=== PATIENT | female | born 1970 | race Caucasian/White ===

== ENCOUNTER 2016-10-27 07:42 | Outpatient (CLI) ==
[2014-09-20 18:00] VITALS: BMI 32.9
--- NOTE | 2016-10-27 09:43 | MRI ---
EXAM: MRI right shoulder without contrast. HISTORY: Right shoulder pain. No right shoulder surgery reported.. TECHNIQUE: Using a local coil on a high field strength magnet multiplanar multisequence MRI was per formed of the right shoulder without intravenous or intra-articular gadolinium contrast.. COMPARISON: Three-view plain film examination right shoulder 08/03/2016.. FINDINGS: A Type IV acromion. Coracoacromial ligament/arch intact without definitive thickening. Right acromioclavicular joint within normal limit in appearance. Deltoid musculature of normal sign al intensity. Trace free fluid subacromial/subdeltoid bursa. Muscle bulk of the rotator cuff shows some fatty infiltration without definitive atrophy or acute mu scle strain. Supraspinatus tendinosis over the insertion and critical zone. Approximate 20 mm AP b y 17 mm in length area of partial thickness articular sided tearing to the supraspinatus insertion a nd critical zone involving approximate 50% thickness of the cuff. Posterior intact infraspinatus an d teres minor tendon fibers. Anterior intact subscapularis tendon fibers. The long head of the bic eps tendon shows intact fibers located in expected position within the bicipital groove and within n ormal limits signal intensity and morphology. Right humeral head of normal morphology and seated. No right glenohumeral joint centered subchondra l bone marrow edema or bone erosions. Trace right glenohumeral joint effusion. Right glenoid labru m along the posterior-superior aspect shows some slit-like increased T2 signal intensity. IMPRESSION: Supraspinatus tendinosis. Approximate 20 x 17 mm partial thickness articular sided tea r involving approximate 50% thickness of the cuff. No full-thickness rotator cuff tear identified. Trace free fluid subacromial/subdeltoid bursa may reflect an overlying degree bursitis and/or be se quelae of prior shoulder injection. Correlate clinically. Trace right glenohumeral joint effusion. Slit-like increased T2 signal intensity along the posterior-superior right glenoid labrum on this no n-arthrographic examination. If clinical concern for a right glenoid labral tear dedicated MR arth rography may be helpful for further characterization.
== END 2016-10-27 07:43 | disposition home or self-care (01) ==
LOC: RAD 07:42
PROVIDERS: ATTEND Nurse Practitioner Family
DX: M25.511 Pain in right shoulder (principal)

== ENCOUNTER 2018-02-10 21:24 | Emergency (ER) ==
[2018-02-10 21:24] VITALS: BMI 32.9
[2018-02-10 21:40] VITALS: BP 125/75; TEMP 98
[2018-02-10] MEDS ORDERED: TORADOL IVP STA (22:16)
[2018-02-10] MEDS ORDERED: ZOFRAN 4 MG/2 ML IVP STA (22:17)
[2018-02-10] MEDS ORDERED: NORFLEX IVP STA (22:18)
[2018-02-10] MEDS ORDERED: SODIUM CHLORIDE 1,000 ML IV STA (22:18)
--- NOTE | 2018-02-10 22:19 | ED.PDOC ---
General ED Provider: Dr. ALEISHA ROBERTS Chief Complaint: Headache Stated Complaint: Onset earlier this evening. Worked today then went to establishment to watch the [place]. Developed Nausea, vomiting and Diarrhea. Headache Midparietal region midline. Pressure with sharp stabbing sensation Time Seen by Physician: 22:15 Mode of Arrival: Walk-In Information Source: Patient Exam Limitations: No limitations Primary Care Provider: CHANTEL HUNTER Nursing and Triage Documentation Reviewed and Agree: Yes Reviewed sepsis parameters & appropriate labs ordered?: Yes System Inflammatory Response Syndrome: Not Applicable Sepsis Protocol: For patient's 13 years and over: Temp is 96.8 and below OR 101 and greater Pulse >90 BPM Resp >20/minute Acutely Altered Mental Status Are patient's symptoms suggestive of a new infection, such as: -Pneumonia -Skin, Soft Tissue -Endocarditis -UTI -Bone, Joint Infection -Implantable Device -Acute Abdominal Infection -Wound Infection -Meningitis -Blood Stream Catheter Infection -Unknown System Inflammatory Response Syndrome: Not Applicable Neurological Complaint Exam - Headache Complaint/Exam Duration: 90 Symptoms Are: Still present Timing: Constant Episodes Lasting: Minutes Worst Headache Ever: Yes Initial Severity: Severe Current Severity: Moderate Location: Parietal Character: Reports: Sharp, Pressure, Migraine Aggravating: Reports: Position change, Bright lights Alleviating: Reports: None Associated Signs and Symptoms: Reports: Nausea, Neck pain, Neck stiffness Related Surgical History: Reports: None SAH Risk Factors: Reports: None Meningitis Risk Factors: Reports: None SDH Risk Factors: Reports: None Temporal Arteritis Risk Factors: Reports: None Normal Head CT Within Last 12 Months: Yes Fundoscopic Exam: Present: Normal Findings Papilledema Present: No Temporal Artery Tenderness: Present: None Sinus Tenderness: Present: None TMJ Tenderness: Present: None Glascow Coma Scale (see protocol): 15 Meningeal Signs Positive: No Pain on Passive Flexion-Positive Kernig's: No ROM Limited In: Side bending right, Rotation left Focal Weakness: Present: None Focal Sensory Loss: Present: None Gait: Normal Review of Systems - Review Of Systems Constitutional: Reports: No symptoms Eyes: Reports: No symptoms Ears, Nose, Mouth, Throat: Reports: No symptoms Respiratory: Reports: No symptoms Cardiac: Reports: No symptoms GI: Reports: No symptoms : Reports: No symptoms Musculoskeletal: Reports: No symptoms Skin: Reports: No symptoms Neurological: Reports: No symptoms Endocrine: Reports: No symptoms Hematologic/Lymphatic: Reports: No symptoms All Other Systems: Reviewed and Negative Past Medical History - Past Medical History Previously Healthy: Yes Endocrine: Reports: None, Hypothyroid Cardiovascular: Reports: None Respiratory: Reports: None Hematological: Reports: None Gastrointestinal: Reports: None Genitourinary: Reports: None Neuro/Psych: Reports: None, Anxiety Musculoskeletal: Reports: None Cancer: Reports: None Last Menstrual Period: HYSTERECTOMY - Surgical History General Surgical History: Reports: None - Family History Family History: Reports: None - Social History Smoking Status: Current every day smoker, Heavy tobacco smoker Hx Substance Use: No Alcohol Screening: Occasionally - Immunizations Tetanus Shot up to Date: Yes Physical Exam - Physical Exam Appearance: Ill-appearing, Well-nourished Ill-appearing: Moderate Pain Distress: Moderate Eyes: ROMEO, EOMI, Conjunctiva clear ENT: Ears normal, Nose normal, Oropharynx normal Respiratory: Airway patent, Breath sounds clear, Breath sounds equal, Respirations nonlabored Cardiovascular: RRR, Pulses normal, No rub, No murmur GI/: Soft, Nontender, No masses, Bowel sounds normal, No Organomegaly Musculoskeletal: Normal strength (Tenderness Rt Occipital Cervical region with C1-C2 Somatic Dysfunction. Tenderness Rt C2. Pressure point tx allowed for resolution of pain ), ROM intact, No edema, No calf tenderness Skin: Warm, Dry, Normal color Neurological: Sensation intact, Motor intact, Reflexes intact, Cranial nerves intact, Alert, Oriented Psychiatric: Affect appropriate, Mood appropriate Procedures - Additional Procedures Additional Procedures: Other (Tenderness Rt Occipital Cervical region with C1- C2 Somatic Dysfunction. Tenderness Rt C2. OMT utilized with Pressure point- Counterstrain tx C2 allowed for resolution of pain) Re-Evaluation - Re-Evaluation Time of Re-Evaluation: 23:50 Status: Improved Vital Signs Stable: Yes Appearance: NAD Lungs: Clear Skin: Warm and Dry Neuro: Alert and Oriented X3 CV: RRR Additional Comments: Feeling much better; requesting discharge to home - Re-Evaluation Time of Re-Evaluation: 00:30 Status: Improved Vital Signs Stable: Yes Appearance: NAD Skin: Warm and Dry Neuro: Alert and Oriented X3 CV: RRR (Requesting discharge to home) Critical Care Note - Critical Care Note Total Time (mins): 30 Course - Course Hematology/Chemistry: 02/10/18 22:30 02/10/18 22:30 Orders, Labs, Meds: Lab Review 02/10/18 02/10/18 22:30 22:30 WBC 12.40 H RBC 4.32 Hgb 14.2 Hct 38.4 MCV 88.9 MCH 32.9 H MCHC 37.0 H RDW Coeff of Slim 12.6 Plt Count 234 Immature Gran % (Auto) 0.3 Neut % (Auto) 72.3 Lymph % (Auto) 21.0 Cataño % (Auto) 4.8 Eos % (Auto) 1.0 Baso % (Auto) 0.6 Immature Gran # (Auto) 0.0 Neut # (Auto) 9.0 H Lymph # (Auto) 2.6 Cataño # (Auto) 0.6 Eos # (Auto) 0.1 Baso # (Auto) 0.1 Sodium 141 Potassium 3.9 Chloride 108 H Carbon Dioxide 23 Anion Gap 13.9 BUN 16 Creatinine 0.76 Estimated GFR (MDRD) 82.00 BUN/Creatinine Ratio 21.05 Glucose 88 Calcium 9.2 Total Bilirubin 2.1 H AST 14 L ALT 19 Alkaline Phosphatase 62 Total Protein 6.9 Albumin 3.7 Globulin 3.2 Albumin/Globulin Ratio 1.16 Lipase 29 Orders Category Date Time Status CBC W/ AUTO DIFF Stat LAB 02/10/18 22:30 Completed CMP [COMPREHENSIVE METABOLIC PANEL] Stat LAB 02/10/18 22:30 Completed LIPASE Stat LAB 02/10/18 22:30 Completed Ketorolac Tromethamine [Toradol] MEDS 02/10/18 22:16 Discontinued 30 mg IVP ONCE STA Ondansetron HCl/Pf [Zofran 4 mg/2 ml] MEDS 02/10/18 22:17 Discontinued 4 mg IVP ONCE STA Orphenadrine Citrate [Norflex] MEDS 02/10/18 22:18 Discontinued 60 mg IVP ONCE STA Sodium Chloride 0.9% [Sodium Chloride] 1,000 ml MEDS 02/10/18 22:[address] HEAD W/O CONTRAST Stat RADS 02/10/18 22:15 Completed Medications Discontinued Medications Generic Name Dose Route Start Last Admin Trade Name Freq PRN Reason Stop Dose Admin Sodium Chloride 1,000 mls @ 500 mls/hr 02/10/18 22:18 02/10/18 22:29 Sodium Chloride IV 02/11/18 00:17 500 mls/hr BOLUS STA Administration Ketorolac Tromethamine 30 mg 02/10/18 22:16 02/10/18 22:28 Toradol IVP 02/10/18 22:17 30 mg ONCE STA Administration Ondansetron HCl 4 mg 02/10/18 22:17 02/10/18 22:29 Zofran 4 Mg/2 Ml IVP 02/10/18 22:18 4 mg ONCE STA Administration Orphenadrine Citrate 60 mg 02/10/18 22:18 02/10/18 22:28 Norflex IVP 02/10/18 22:19 60 mg ONCE STA Administration Vital Signs: Temp Pulse Resp BP Pulse Ox 02/10/18 21:36 98 F 94 H 16 125/75 100 Departure - Departure Time of Disposition: 00:45 Disposition: HOME SELF-CARE Discharge Problem: Cephalgia, Cervicalgia of [id number] region, Cervical somatic dysfunction Instructions: Acute Headache (ED), Acute Neck Pain (ED) Condition: Good Pt referred to PMD for follow-up: Yes (5-7 days) IPMP verified?: No Additional Instructions: Take Ibuprofen 600 mg every 6 hours for relief of neck pain or headache plus Orphenadrine every 12 hrs for neck tightness Use warm moist heat applied to area of discomfort in neck for 20 minutes 3 times daily Follow up with PCP as needed Prescriptions: Orphenadrine Citrate 100 mg PO BID PRN #20 tablet.er PRN Reason: Neck tightness/tenderness Allergies/Adverse Reactions: Allergies aspirin Adverse Reaction (Unknown, Verified 02/10/18 23:50) diphenhydramine [From Benadryl] Adverse Reaction (Unknown, Verified 02/10/18 23: 50) Home Medications: Ambulatory Orders Alprazolam [Xanax] 0.25 mg PO BEDTIME 02/10/18 Ibuprofen 600 mg PO DAILY 02/10/18 Levothyroxine Sodium [Synthroid] 200 mcg PO DAILY 02/10/18 Orphenadrine Citrate 100 mg PO BID PRN #20 tablet.er 02/11/18 Disposition Discussed With: Patient, Family
--- NOTE | 2018-02-10 22:39 | CT ---
EXAM: CT scan brain without contrast HISTORY: Headache COMPARISON: MRI brain 09/23/2014 FINDINGS: Contiguous axial images obtained from the skull base to the convexities without contrast u tilizing 5-mm collimation. Sagittal and coronal reconstructions were imaged and reviewed. The ventr icles and CSF spaces are within normal limits. There are no acute intracranial findings. The visual ized paranasal sinuses and mastoid air cells are clear. There is deviation of the nasal septum to th e left of midline. IMPRESSION: No acute intracranial findings
== END 2018-02-11 00:53 | disposition home or self-care (01) ==
LOC: ED 21:24
DX: R51 Headache (principal); M54.2 Cervicalgia; M99.01 Segmental and somatic dysfunction of cervical region; R11.2 Nausea with vomiting, unspecified; R19.7 Diarrhea, unspecified; F17.210 Nicotine dependence, cigarettes, uncomplicated
CPT/HCPCS: 36415; 80053; 83690; 85025; 96361; 96372; 96374; 96375; 99283

== ENCOUNTER 2019-05-31 08:53 | Outpatient (CLI) ==
--- NOTE | 2019-05-31 20:18 | US ---
EXAM: Digital diagnostic mammogram with tomosynthesis, right breast ultrasound HISTORY: Lump right breast COMPARISON: 12/13/2013 FINDINGS: Mammogram: Digital MLO and CC views and spot compression CC and MLO views of the right and left [address] were performed. Tomosynthesis was performed. Computer aided detection utilized. The breast tissu e is heterogeneously dense, which could obscure small masses. There is a mass in the right superior breast anterior depth. There is no evidence for mass, asymmetry, distortion, or suspicious calcifica tions in the left breast. Ultrasound: Ultrasound right breast was performed. The 12 o'clock position 3 - 4 cm of the nipple, there is a 3. 6 x 2.3 x 3.2 cm anechoic cyst with posterior through transmission.. There is an adjacent simple ane choic 0.9 x 0.6 x 1.0 cm simple anechoic cyst. There is also an adjacent 0.4 x 0.5 x 0.4 cm simple a nechoic cyst. IMPRESSION: 1. Benign right breast cysts. 2. Annual screening mammogram is recommended in one year. BIRADS category 2, benign
== END 2019-05-31 08:54 | disposition home or self-care (01) ==
LOC: RAD 08:53
PROVIDERS: ATTEND Nurse Practitioner Family
DX: N63.10 Unspecified lump in the right breast, unspecified quadrant (principal)